=== PATIENT | male | born 1970 | race African-American/Black ===

== ENCOUNTER 2016-11-28 19:52 | Emergency (ER) | payer SELFPAY ==
[~2016-11-28] VITALS: Ht 185.4 cm; Wt 99.0 kg
[2016-11-28 19:54] VITALS: BP 134/88; PULSE 67; RESP 16; TEMP 98.5; O2SAT 100
[2016-11-28] MEDS ORDERED: IBUP-232 PO (23:25)
--- NOTE | 2016-11-28 23:25 | PD ---
HPI Chief Complaint: Abdominal Pain Time Seen by Provider: 23:13 Travel History International Travel<30 days: No Contact w/Intl Traveler<30days: No Traveled to known affect area: No History of Present Illness HPI 46-year-old male complains of pain and swelling on the right groin. Patient states the symptoms started a week ago. Patient states that he had increasing pain and swelling on standing up and the symptoms better when he lying down. She denies any injury to the area. Patient states the pain aching pain localized to right groin. Patient denies any pain radiation. Patient denies any fever chills. Patient denies any nausea vomiting diarrhea. Patient denied dysuria or frequency. Patient denies any penile discharge. PFSH Social History Tobacco Use: No Allergies-Medications (Allergen,Severity, Reaction): Coded Allergies: No Known Allergies (Unverified , 11/28/16) Reported Meds & Prescriptions Reported Meds & Active Scripts Active Ibuprofen 600 Mg Tab 600 Mg PO Q8HR PRN Review of Systems General / Constitutional: No: Fever Eyes: No: Visual changes HENT: No: Headaches Cardiovascular: No: Chest Pain or Discomfort Respiratory: No: Shortness of Breath Gastrointestinal: No: Abdominal Pain Genitourinary: No: Dysuria Musculoskeletal: No: Pain Skin: No Rash Neurologic: No: Weakness Psychiatric: No: Depression Endocrine: No: Polydipsia Hematologic/Lymphatic: No: Easy Bruising Physical Exam Narrative GENERAL: Well-nourished, well-developed patient. SKIN: Focused skin assessment warm/dry. HEAD: Normocephalic. EYES: No scleral icterus. No injection or drainage. NECK: Supple, trachea midline. No JVD or lymphadenopathy. CARDIOVASCULAR: Regular rate and rhythm without murmurs, gallops, or rubs. RESPIRATORY: Breath sounds equal bilaterally. No accessory muscle use. GASTROINTESTINAL: Abdomen soft, non-tender, nondistended. MUSCULOSKELETAL: No cyanosis, or edema. BACK: Nontender without obvious deformity. No CVA tenderness. exam: Patient has a small reducible right inguinal hernia. Mild tenderness on palpation right pubic inguinal area. No tenderness on palpation of the testicle or spermatic cord. . No penile lesions or discharge noted. Data Data Last Documented VS Vital Signs Date Time Temp Pulse Resp B/P Pulse Ox O2 Delivery O2 Flow Rate FiO2 5/18/17 19:54 98.5 67 16 134/88 100 MDM Medical Decision Making Medical Screen Exam Complete: Yes Emergency Medical Condition: Yes Differential Diagnosis Differential diagnosis including reducible inguinal hernia, incarcerated inguinal hernia, strangulated inguinal hernia. Narrative Course 46-year-old male with reducible right inguinal hernia. Diagnosis Primary Impression: Reducible right inguinal hernia Patient Instructions: General Instructions Additional Instructions: Ibuprofen for pain. Avoid heavy lifting. Follow-up with the general surgeon. Return if unable to reduce the hernia, intractable pain, fever, vomiting. Med/Other Pt SpecificInfo: Prescription(s) given Scripts Ibuprofen 600 Mg [id number] Mg PO Q8HR PRN (PAIN) #60 TAB Ref 0 Prov:Gera Adhikari MD 11/28/16 Disposition: 01 DISCHARGE HOME Condition: Stable Gera Adhikari MD November 28, 2016 23:25
== END 2016-11-28 23:52 | disposition home or self-care (01) ==
LOC: NEPD 19:52
DX: K40.90 Unilateral inguinal hernia, without obstruction or gangrene, not specified as recurrent (principal)
CPT/HCPCS: 99283